=== PATIENT | male | born 2000 | race Caucasian/White ===

== ENCOUNTER 2025-04-19 14:57 | Outpatient (CLI) | payer OTHER ==
--- NOTE | 2025-04-20 17:13 | RADIOLOGY REPORT ---
CLINICAL INDICATION: EFFUSION, RIGHT ANKLE;PAIN IN RIGHT FOOT TECHNIQUE: Noncontrast CT of the right ankle was performed. Sagittal and coronal reformatted images a re provided. COMPARISON: None CT Dose: CTDI volume is 14.4 mGy. Dose-length product is 379.3 mGy*cm FINDINGS: There is a cast in place. There is a nondisplaced fracture through the posterior cortex of the calcan eus. The joint spaces are maintained. No abnormal alignment. There is a 5 mm osteochondral lesion in the central talar dome. There is no widening of the medial ankle clear space. Mild soft tissue swe lling adjacent to the calcaneal fracture. IMPRESSION: 1. Nondisplaced calcaneal fracture. Soft tissue swelling. 2. 5 mm osteochondral lesion in the central talar dome. HS:Y All CT scans at this medical facility are performed using dose modulation techniques as appropriate t o a performed exam including the following: Automated exposure control was utilized; adjustment of th e MA and/or KV according to patient size; and use of iterative reconstruction technique.
== END 2025-04-19 23:59 | disposition home or self-care (01) ==
LOC: RAD 14:57
PROVIDERS: ATTEND Podiatrist Foot & Ankle Surgery
DX: S92.001A Unspecified fracture of right calcaneus, initial encounter for closed fracture (principal); M25.471 Effusion, right ankle; M79.671 Pain in right foot; M79.89 Other specified soft tissue disorders; X58.XXXA Exposure to other specified factors, initial encounter; Y93.9 Activity, unspecified; Y92.89 Other specified places as the place of occurrence of the external cause; Y99.8 Other external cause status; Y93.89 Activity, other specified
CPT/HCPCS: 73700

== ENCOUNTER 2025-04-30 12:00 | Outpatient (CLI) | payer OTHER ==
--- NOTE | 2025-04-30 15:31 | RADIOLOGY REPORT ---
INDICATION: DISP FX OF PROXIMAL THIRD OF NAVICULAR BONE OF R WRIST, INIT COMPARISON: None TECHNIQUE: CT of the right wrist was performed without contrast. Volume transverse images were obtain ed and reconstructed in multiple planes using bone and soft tissue algorithms. All CT scans at this medical facility are performed using dose modulation techniques as appropriate t o a performed exam including the following: Automated exposure control was utilized; adjustment of th e MA and/or KV according to patient size; and use of iterative reconstruction technique. CONTRAST: None Radiation Dose Information: CTDI volume is 0.14+ 14.36 mGy. Dose-length product is 422.02 mGy*cm FINDINGS: Normal mineralization and alignment. Joint spaces are preserved. There is a nondisplaced fracture of the proximal scaphoid bone with sclerosis along the fracture margins, nondisplaced. Chip fracture at the radial distal aspect of the lunate. There is a comminuted nondisplaced fracture of the proximal t o mid triquetrum. The overlying soft tissues are intact without fluid collection or soft tissue gas. The Muscle bundles about the right wrist are intact. The visualized ligaments and tendons are gross ly intact although not optimally evaluated by CT. IMPRESSION: Nondisplaced proximal scaphoid fracture with sclerosis along the fracture margins, likely a healing r esponse/subacute fracture. Chip fracture at the radial distal lunate bone. Comminuted nondisplaced fracture of the proximal to mid triquetrum.
== END 2025-04-30 23:59 | disposition home or self-care (01) ==
LOC: RAD 12:00
PROVIDERS: ATTEND Orthopaedic Surgery Hand Surgery
DX: S62.114A Nondisplaced fracture of triquetrum [cuneiform] bone, right wrist, initial encounter for closed fracture (principal); S62.034A Nondisplaced fracture of proximal third of navicular [scaphoid] bone of right wrist, initial encounter for closed fracture; S52.591A Other fractures of lower end of right radius, initial encounter for closed fracture; X58.XXXA Exposure to other specified factors, initial encounter; Y93.89 Activity, other specified; Y92.89 Other specified places as the place of occurrence of the external cause; Y99.8 Other external cause status
CPT/HCPCS: 73200